=== PATIENT | male | born 1945 | race Caucasian/White ===

== ENCOUNTER 2021-01-09 10:03 | Observation (INO) | payer OTHER ==
[~2021-01-09] VITALS: Ht 175.3 cm; Wt 70.3 kg
[~2021-01-09 10:03] MED LIST: THORAZINE 25 MG25 MG PO
[2021-01-09 11:06] LABS: HEMOGLOBIN 17.4 gm/dl (14.0-17.5); RED BLOOD COUNT 5.59 M/UL (4.20-5.50)
[2021-01-09 11:23] LABS: BUN/CREATININE RATIO 18 (0-10)
[2021-01-10 07:26] LABS: HEMOGLOBIN 16.4 gm/dl (14.0-17.5); RED BLOOD COUNT 5.57 M/UL (4.20-5.50); WHITE BLOOD COUNT 5.9 K/UL (4.5-11.0)
[2021-01-10 07:49] LABS: BUN/CREATININE RATIO 21 (0-10)
[2021-01-10] MEDS ORDERED: ALLEGRA ALLERGY60 MG PO (10:52)
[2021-01-10] MEDS ORDERED: ATORVASTATIN CA10 MG PO (10:52)
[2021-01-10] MEDS ORDERED: MONTELUKAST SOD10 MG PO (10:53)
[2021-01-10] MEDS ORDERED: FISH OIL 1,0001 EACH PO (10:53)
[2021-01-10] MEDS ORDERED: OMEPRAZOLE20 MG PO (10:54)
[2021-01-10] MEDS ORDERED: TRAZODONE HCL300 MG PO (10:54)
[2021-01-11] MEDS ORDERED: ASPIRIN EC81 MG PO (11:41)
[2021-01-11] MEDS ORDERED: ATORVASTATIN CA20 MG PO (11:41)
[2021-01-11] MEDS ORDERED: ELIQUIS 5 MG TAB5 MG PO (11:41)
[2021-01-11] MEDS ORDERED: LOPRESSOR 25 MG25 MG PO (11:41)
== END 2021-01-11 15:44 | disposition home or self-care (01) ==
LOC: ER1 10:03 → CDU 13:32 → MED SURG 4 13:32 → CDU 13:32 → MED SURG 4 20:48
PROVIDERS: Physician Assistant; ADMIT Internal Medicine Infectious Disease
DX: I63.532 Cerebral infarction due to unspecified occlusion or stenosis of left posterior cerebral artery (principal); R91.8 Other nonspecific abnormal finding of lung field; E78.5 Hyperlipidemia, unspecified; D69.6 Thrombocytopenia, unspecified; I48.91 Unspecified atrial fibrillation; J44.9 Chronic obstructive pulmonary disease, unspecified; F43.10 Post-traumatic stress disorder, unspecified; Z20.822 Contact with and (suspected) exposure to COVID-19; I08.3 Combined rheumatic disorders of mitral, aortic and tricuspid valves
CPT/HCPCS: ECHO; 36415; 70450; 70496; 70498; 70551; 71250; 80048; 80053; 80061; 85025; 93005; 93306; 97162; 99285; G0378; J1650; Q9967; U0002

== ENCOUNTER → 2021-03-20 | Day surgery (SDC) | payer OTHER ==
[~2021-03-20] MED LIST changes: +ALLEGRA ALLERGY60 MG PO; +ASPIRIN EC81 MG PO; +ATORVASTATIN CA10 MG PO; +ATORVASTATIN CA20 MG PO; +ELIQUIS 5 MG TAB5 MG PO; +FISH OIL 1,0001 EACH PO; +LOPRESSOR 25 MG25 MG PO; +MONTELUKAST SOD10 MG PO; +OMEPRAZOLE20 MG PO; +TRAZODONE HCL300 MG PO
== END | disposition home or self-care (01) ==
LOC: CATH 07:49
DX: I49.8 Other specified cardiac arrhythmias (principal); Z20.822 Contact with and (suspected) exposure to COVID-19; Z53.8 Procedure and treatment not carried out for other reasons
CPT/HCPCS: 93005; J1200; J1742; J2250; J2310; J3010; U0002